=== PATIENT | female | born 1965 | race Caucasian/White ===

== ENCOUNTER 2019-08-30 00:27 | Outpatient (CLI) | payer OTHER, SELFPAY ==
[2019-08-30 18:07] LABS: SARS-CoV-2 RNA PCR Negative
== END 2019-08-30 00:28 | disposition home or self-care (01) ==
LOC: ANHCOVIDDT 00:27
PROVIDERS: PCP Family Medicine; Visit Provider Internal Medicine Gastroenterology
DX: Z01.812 Encounter for preprocedural laboratory examination (principal); Z20.828 Contact with and (suspected) exposure to other viral communicable diseases
CPT/HCPCS: 87635; C9803; U0003

== ENCOUNTER 2019-09-01 00:05 | Day surgery (SDC) | payer OTHER, SELFPAY ==
[2019-08-25 13:10] VITALS: BMI 34.2
[2019-09-01] MEDS: LACTATED RINGERS 1,000 ML 150 ML IV CONT (06:50)
--- NOTE | 2019-09-01 06:54 | P.HP_ITS ---
History of Present Illness History of Present Illness Consent: Risks, benefits, and alternatives have been discussed and questions answered. Patient agrees to proceed with procedure. Chief complaint: Neoplasm Screening, Family Hx Narrative: Rachel Fatima is a 54 year old W female referred for screening colonoscopy secondary history of a serrated adenoma removed via piecemeal fashion 3 years ago from the ascending colon. Patient has no interval complaints except for some menorrhagia which she is being evaluated by [employer]. A paternal uncle with colon cancer. [facility] Past Medical History Medical History Anxiety Essential (primary) hypertension Mixed hyperlipidemia BENNIE (obstructive sleep apnea) Recurrent major depressive disorder, in partial remission Varicose veins of both lower extremities Vitamin D deficiency Surgical History Surgical History (Updated 09/01/19 @ 06:56 by Seferino Ashby MD) History of arthroscopy of both knees Family History Family History Father Family history of coronary artery disease Social History Social History Smoking status: Never smoker Second hand tobacco smoke exposure: No Alcohol intake: current Meds Home Medications and Allergies Home Medications Medication Instructions Recorded Confirmed Type citalopram 40 mg tablet 40 mg PO DAILY #90 tablet 06/07/19 08/25/19 Rx fenofibrate 160 mg tablet 160 mg PO DAILY #90 tablet 06/07/19 08/25/19 Rx losartan 50 mg tablet 50 mg PO DAILY #90 tablet 06/07/19 08/25/19 Rx potassium chloride 10 mEq 10 meq PO DAILY #90 tablet 06/07/19 08/25/19 Rx tablet,extended release meloxicam 15 mg tablet 15 mg PO DAILY #30 tablet 08/04/19 08/25/19 Rx amlodipine 5 mg tablet See Rx Instructions .ROUTE 08/18/19 08/25/19 Rx .COMPLEX #30 tablet aspirin [Aspirin Low Dose] 81 mg PO DAILY 08/25/19 08/25/19 History esomeprazole magnesium [Nexium] 20 mg PO DAILY 08/25/19 08/25/19 History hydrochlorothiazide 12.5 mg PO DAILY 08/25/19 08/25/19 History loratadine [Claritin] 10 mg PO DAILY 08/25/19 08/25/19 History multivitamin [Daily Multi-Vitamin] 1 tablet PO DAILY 08/25/19 08/25/19 History Allergies Allergy/AdvReac Type Severity Reaction Status Date / Time tomato Allergy Intermediate ECZEMA Verified 09/01/19 06:56 WORSENS strawberry AdvReac Intermediate ECZEMA Verified 09/01/19 06:56 WORSENS lisinopril AdvReac Cough Verified 09/01/19 06:56 Exam Const: Orientation/consciousness: patient oriented x3 Resp: Auscultation: clear to auscultation bilaterally Cardio: Rate: regular rate Rhythm: regular rhythm Heart sounds: no murmurs GI: GI Palp: Yes Soft to palpation, No Tenderness to palpation present (GI), Yes No hepatosplenomegaly present and No Palpable mass present Auscultation: normal bowel sounds Neuro: General: patient oriented x3 and no focal motor deficits Extrem: General: no pedal edema Assessment and Plan Additional Plan screening colonoscopy secondary history of a serrated adenoma removed piecemeal fashion 3 years ago
[2019-09-01 07:05] VITALS: BP 142/73; PULSE 70; RESP 18; TEMP 36.6; O2SAT 96
--- NOTE | 2019-09-01 07:09 | WPDANESEPPF ---
Anes - Initial Pre Proc Eval Procedure: Operation Date: 09/01/19 08:00 Proposed Procedures p Screening Colonoscopy - Seferino Ashby MD Date/Time: 09/01/19 07:09 Surgeon: Seferino Ashby MD Pre Op Diagnosis: Neoplasm Screening, Family Hx Patient Data Age: 54 Gender: F Height: 1.73 m Weight: 102.2 kg Last Vital Signs Temp 36.6 C 09/01/19 07:05 Pulse 70 09/01/19 07:05 Resp 18 09/01/19 07:05 BP 142/73 H 09/01/19 07:05 Pulse Ox 96 09/01/19 07:05 Allergies Allergy/AdvReac Type Severity Reaction Status Date / Time tomato Allergy Intermediate ECZEMA Verified 09/01/19 06:56 WORSENS strawberry AdvReac Intermediate ECZEMA Verified 09/01/19 06:56 WORSENS lisinopril AdvReac Cough Verified 09/01/19 06:56 Home Medications Medication Instructions Recorded Confirmed Type citalopram 40 mg tablet 40 mg PO DAILY #90 tablet 06/07/19 08/25/19 Rx fenofibrate 160 mg tablet 160 mg PO DAILY #90 tablet 06/07/19 08/25/19 Rx losartan 50 mg tablet 50 mg PO DAILY #90 tablet 06/07/19 08/25/19 Rx potassium chloride 10 mEq 10 meq PO DAILY #90 tablet 06/07/19 08/25/19 Rx tablet,extended release meloxicam 15 mg tablet 15 mg PO DAILY #30 tablet 08/04/19 08/25/19 Rx amlodipine 5 mg tablet See Rx Instructions .ROUTE 08/18/19 08/25/19 Rx .COMPLEX #30 tablet aspirin [Aspirin Low Dose] 81 mg PO DAILY 08/25/19 08/25/19 History esomeprazole magnesium [Nexium] 20 mg PO DAILY 08/25/19 08/25/19 History hydrochlorothiazide 12.5 mg PO DAILY 08/25/19 08/25/19 History loratadine [Claritin] 10 mg PO DAILY 08/25/19 08/25/19 History multivitamin [Daily Multi-Vitamin] 1 tablet PO DAILY 08/25/19 08/25/19 History Patient hx anesthesia problems: none Family hx anesthesia problems: none PMFSH Past Medical History Medical History Anxiety Essential (primary) hypertension Mixed hyperlipidemia BENNIE (obstructive sleep apnea) Recurrent major depressive disorder, in partial remission Varicose veins of both lower extremities Vitamin D deficiency Surgical History Surgical History (Updated 09/01/19 @ 06:56 by Seferino Ashby MD) History of arthroscopy of both knees Family History Family History Father Family history of coronary artery disease Social History Social History Smoking status: Never smoker Second hand tobacco smoke exposure: No Alcohol intake: current Anes - Eval Final PreProcedure Day of Procedure 09/01/19 07:09 Patient weight: obese Heart: regular rate and rhythm Lungs: clear to auscultation and normal air movement Airway: Mallampati scale class II Neurological: alert and oriented Last oral intake: >/= 8 hours ASA classification: III Emergent: no Anesthetic plan: proceed Anesthesia type and monitoring: general GIVS and standard monitoring Informed Consent: The patient's anesthetic plan and its attendant risks and benefits were discussed with the patient/family/POA. Questions were solicited and answers provided to the satisfaction of the patient/family/POA.
[2019-09-01 08:26] VITALS: BP 94/68; PULSE 68; RESP 18; O2SAT 99
[2019-09-01 08:36] VITALS: BP 110/74; PULSE 63; RESP 17; O2SAT 97
[2019-09-01 08:46] VITALS: BP 117/77; PULSE 64; RESP 13; O2SAT 97
== END 2019-09-01 09:08 | disposition home or self-care (01) ==
PROVIDERS: PCP Family Medicine; Visit Provider Internal Medicine Gastroenterology
PROC: 0DJD8ZZ Inspection of Lower Intestinal Tract, Via Natural or Artificial Opening Endoscopic (ICD-10-PCS; CPT 45378; principal; 2019-09-01 08:00)
DX: Z12.11 Encounter for screening for malignant neoplasm of colon (principal); K57.30 Diverticulosis of large intestine without perforation or abscess without bleeding; Z86.010 Personal history of colon polyps; Z80.0 Family history of malignant neoplasm of digestive organs; I10 Essential (primary) hypertension; E78.2 Mixed hyperlipidemia; E55.9 Vitamin D deficiency, unspecified; G47.33 Obstructive sleep apnea (adult) (pediatric); F41.9 Anxiety disorder, unspecified; F33.41 Major depressive disorder, recurrent, in partial remission; Z79.82 Long term (current) use of aspirin; E66.9 Obesity, unspecified; Z68.35 Body mass index [BMI] 35.0-35.9, adult
CPT/HCPCS: 45378; 87635; C9803; J2704; J7120; U0003

== ENCOUNTER 2019-09-22 00:37 | Outpatient (CLI) | payer OTHER, SELFPAY ==
[2019-09-22 17:53] LABS: SARS-CoV-2 RNA PCR Negative
== END 2019-09-22 00:38 | disposition home or self-care (01) ==
LOC: ANHCOVIDDT 00:38
PROVIDERS: PCP Family Medicine; Visit Provider Obstetrics & Gynecology
DX: Z20.828 Contact with and (suspected) exposure to other viral communicable diseases (principal); Z01.812 Encounter for preprocedural laboratory examination
CPT/HCPCS: 87635; C9803; U0003

== ENCOUNTER 2019-09-22 08:46 | Outpatient (CLI) | payer OTHER, SELFPAY ==
--- NOTE | 2019-09-22 08:50 | ECG_ITS ---
Measurements Intervals [place] Rate: 60 P: 56 MN: 195 QRS: 35 QRSD: 100 T: 33 QT: 457 QTc: 457 Interpretive Statements SINUS RHYTHM DELAYED PRECORDIAL R/S TRANSITION BORDERLINE ECG Electronically Signed On 09-22-2019 10:47:21 CDT by Raphael Brewster D.O.
[2019-09-22 09:47] LABS: Hematocrit 39.4 % (37.0-47.0); Hemoglobin 12.6 g/dL (12.0-15.0)
[2019-09-22 09:58] LABS: Blood Urea Nitrogen 14 mg/dL (7-17); Calcium 8.9 mg/dL (8.4-10.2); Carbon Dioxide 29 mmol/L (22-30); Chloride 103 mmol/L (98-107); Estimated Glomerular Filt Rate > 60; Glucose 95 mg/dL (65-105); Potassium 3.8 mmol/L (3.4-5.0); Sodium 135 mmol/L (137-145)
== END 2019-09-22 08:47 | disposition home or self-care (01) ==
LOC: ANHSURGERY 08:50
PROVIDERS: Anesthesiology; PCP Family Medicine; Visit Provider Obstetrics & Gynecology
DX: D64.9 Anemia, unspecified (principal); I10 Essential (primary) hypertension; Z79.899 Other long term (current) drug therapy; R94.31 Abnormal electrocardiogram [ECG] [EKG]
CPT/HCPCS: 36415; 80048; 85014; 85018; 87635; 93005; C9803; U0003

== ENCOUNTER 2019-09-25 01:59 | Day surgery (SDC) | payer OTHER, SELFPAY ==
[2019-09-12 13:48] VITALS: BMI 34.2
--- NOTE | 2019-09-21 18:01 | HP_ITS ---
DATE OF SERVICE: 09/25/2019 Surgery is scheduled for September 24. HISTORY OF PRESENT ILLNESS: The patient is a 54-year-old G3, P3, who came to me for consultation due to heavy periods. Her periods have been every 1 to 3 months, lasting 4-5 days for the past years, spql-lyp-y-half ago, but she had a heavy 14-day period at the beginning of July and started bleeding again about 10 days later. She saw Dr. Lazcano on August 03. She started her on progesterone for 10 days. The bleeding lightened, but is still occurring, some days are very heavy and she wears double protection. She feels tired and winded, but no chest pain or dizziness. Her hemoglobin dropped from 12.7 to 9 per her report. MEDICAL HISTORY: Hypertension, high cholesterol, depression, and anxiety. MEDICATIONS: 1. Amlodipine. 2. Citalopram. 3. Claritin. 4. Cozaar. 5. Fenofibrate. 6. Hydrochlorothiazide. 7. Progesterone. 8. Meloxicam. 9. Mobic. OB HISTORY: Three vaginal deliveries. SURGICAL HISTORY: Meniscus tear of her knee and right knee arthroscopy, D and C and tonsillectomy and adenoidectomy. SOCIAL HISTORY: Negative for tobacco or drug use. She occasionally drinks alcohol. WOOL DYER HISTORY: Negative for abnormal PAP or STD. REVIEW OF SYSTEMS: Negative. PHYSICAL EXAMINATION: VITAL SIGNS: Her weight is 238, blood pressure 135/83. GENERAL: No apparent distress. HEART: Regular rate and rhythm. LUNGS: Clear to auscultation. ABDOMEN: Soft, nontender, nondistended. EXTREMITIES: Nontender with trace edema. PELVIC: Shows slightly enlarged uterus, mobile, smooth. Adnexa full on the left side and both sides nontender. IMAGING: Pelvic ultrasound shows uterus measuring 10.6 cm maximum of 2.1 cm fibroid, 14 x 9 mm endometrial polyp, 5.4 cm left ovarian cyst, 2.4 cm right ovarian cyst. ASSESSMENT AND PLAN: Menometrorrhagia with bilateral ovarian cyst, endometrial polyp and fibroid. She opted and signed consent for D and C, hysteroscopy, endometrial polypectomy, endometrial ablation, laparoscopic bilateral ovarian cystectomies and possible left oophorectomy after the risks, benefits, complications, and alternatives were discussed. D I MT: [place]
[2019-09-25] VITALS (9 sets, daily range): BP systolic 95–132; BP diastolic 68–82; PULSE 62–76; RESP 10–20; TEMP 36.3–36.7; O2SAT 97–100
--- NOTE | 2019-09-25 10:12 | WPDANESEPPF ---
Anes - Initial Pre Proc Eval Procedure: Operation Date: 09/25/19 12:00 Proposed Procedures p Laparoscopic Bilateral Ovarian Cystectomy, Hysteroscopy, Cyndy Endometrial Ablation, Possible Laparoscopic Bilateral Oophorectomy - Stacey Huynh MD Date/Time: 09/25/19 10:12 Surgeon: Stacey Huynh MD Pre Op Diagnosis: Kaveh Ovarian Cyst/ Uterin Polyp/ Menometrorrhagia Patient Data Age: 54 Gender: F Height: 1.73 m Weight: 102.2 kg Allergies Allergy/AdvReac Type Severity Reaction Status Date / Time tomato Allergy Intermediate ECZEMA Verified 09/25/19 10:40 WORSENS strawberry AdvReac Intermediate ECZEMA Verified 09/25/19 10:40 WORSENS lisinopril AdvReac Cough Verified 09/25/19 10:40 Home Medications Medication Instructions Recorded Confirmed Type citalopram 40 mg tablet 40 mg PO DAILY #90 tablet 06/07/19 09/12/19 Rx fenofibrate 160 mg tablet 160 mg PO DAILY #90 tablet 06/07/19 09/12/19 Rx losartan 50 mg tablet 50 mg PO DAILY #90 tablet 06/07/19 09/12/19 Rx aspirin [Aspirin Low Dose] 81 mg PO DAILY 08/25/19 09/12/19 History esomeprazole magnesium [Nexium] 20 mg PO DAILY 08/25/19 09/12/19 History hydrochlorothiazide 12.5 mg PO DAILY 08/25/19 09/12/19 History loratadine [Claritin] 10 mg PO DAILY 08/25/19 09/12/19 History multivitamin [Daily Multi-Vitamin] 1 tablet PO DAILY 08/25/19 09/12/19 History ferrous sulfate 325 mg PO BID 09/12/19 09/12/19 History meloxicam 15 mg PO DAILY PRN 09/12/19 09/12/19 History potassium chloride 10 meq PO 4XW 09/12/19 09/12/19 History amlodipine [Norvasc] See Rx Instructions .ROUTE .COMPLEX 09/25/19 09/25/19 History ECG: Date of Service: 09/22/19 Procedure(s): CA 12 lead EKG Accession Number(s): [id number] cc: ~ Measurements Intervals [place] Rate: 60 P: 56 FL: 195 QRS: 35 QRSD: 100 T: 33 QT: 457 QTc: 457 Interpretive Statements SINUS RHYTHM DELAYED PRECORDIAL R/S TRANSITION BORDERLINE ECG Electronically Signed On 09-22-2019 10:47:21 CDT by Raphael Brewster D.O. Dictated By: Raphael Brewster DO 09/22/19 0935 Patient hx anesthesia problems: none Family hx anesthesia problems: none PMFSH Past Medical History Medical History (Updated 09/25/19 @ 10:13 by Akil Moreland MD) Anxiety Arthritis Essential (primary) hypertension Mixed hyperlipidemia Obesity BENNIE (obstructive sleep apnea) Recurrent major depressive disorder, in partial remission Varicose veins of both lower extremities Vitamin D deficiency Surgical History Surgical History (Updated 09/01/19 @ 06:56 by Seferino Ashby MD) History of arthroscopy of both knees Social History Social History Smoking status: Never smoker Second hand tobacco smoke exposure: No Alcohol intake: current Anes - Eval Final PreProcedure Day of Procedure 09/25/19 10:12 Patient weight: obese Heart: regular rate and rhythm Lungs: clear to auscultation and normal air movement Airway: Mallampati scale class II Neurological: alert and oriented Last oral intake: >/= 8 hours ASA classification: III Emergent: no Anesthetic plan: proceed Anesthesia type and monitoring: general ETT Informed Consent: The patient's anesthetic plan and its attendant risks and benefits were discussed with the patient/family/POA. Questions were solicited and answers provided to the satisfaction of the patient/family/POA.
[2019-09-25] MEDS: LACTATED RINGERS 1,000 ML 30 ML IV CONT ×2 (11:00→13:52)
--- NOTE | 2019-09-25 12:03 | WPDHPUPDATE1 ---
History and Physical Update Update Date/Time: 09/25/19 12:03 History and Physical has been reviewed, including an updated exam of the patient. There are NO changes in the patient's condition. Risks, benefits, and alternatives have been discussed and questions answered. Patient agrees to proceed with procedure.
--- NOTE | 2019-09-25 12:18 | PM.OP ---
Procedure Note - Brief Procedure Note - Brief Date of procedure: 09/25/19 Pre-op diagnosis: Kaveh Ovarian Cyst/ Uterin Polyp/ Menometrorrhagia Post-op diagnosis: other (Right ovarian cyst, endometrial polyps, menometrorrhagia) Procedure performed: D&C, hysteroscopy, endometrial polypectomy, Cyndy ablation, laparoscopic right ovarian cystectomy Anest[facility]: [facility] Surgeon: Stacey Huynh MD Estimated blood loss (mL): 20 Drains: No Pathology: yes Complications: No immediate complications Condition: stable Disposition: PACU Findings: Large right serous fluid filled ovarian cyst, otherwise normal intraabdominal contents; several small polypoid lesions inside endometrial canal, otherwise normal intrauterine cavity
[2019-09-25] MEDS: BUPIVACAINE/EPINEPHRINE 0.5% 30 ML VIAL 10 ML INFILTRATE (13:58)
[2019-09-25] MEDS: KETOROLAC 30 MG/ML VIAL (*BKC) IV PUSH (13:58)
[2019-09-25] MEDS: PROPARACAINE HCL 0.5% 15 ML OPHTH SOLN 1 DROP EACH EYE (15:03)
--- NOTE | 2019-09-25 15:34 | OP_ITS ---
DATE OF PROCEDURE: 09/25/2019 PREOPERATIVE DIAGNOSIS: Menometrorrhagia, bilateral ovarian cysts, endometrial polyp. POSTOPERATIVE DIAGNOSES: Menometrorrhagia, right ovarian cyst, endometrial polyps. PROCEDURE PERFORMED: Laparoscopic right ovarian cystectomy, D and C, hysteroscopy, endometrial polypectomies using MyoSure, Cyndy endometrial ablation. ANESTHESIA: General endotracheal tube. ESTIMATED BLOOD LOSS: 20 mL. COMPLICATIONS: None. FINDINGS: Large serous fluid-filled right ovarian cyst. Otherwise normal uterus, left ovary, fallopian tubes, appendix, small possible diverticulum on the colon with one adhesion of an epiploic appendage to the left anterior abdominal wall. Normal endometrial cavity other than several small polypoid lesions. INDICATIONS: A 54-year-old, G3, P3, who came to me for consultation due to heavy periods. She was started on progesterone by her primary care physician and the bleeding did lighten, but is still occurring and her hemoglobin did drop from 12.7 to 9. On ultrasound, she was found to have a polypoid lesion, so she was recommended to proceed with surgical therapy and she did sign consent after the risks, benefits, complications, and alternatives were discussed for D and C, hysteroscopy, endometrial polypectomy, endometrial ablation, laparoscopic bilateral ovarian cystectomies with possible left oophorectomy. DESCRIPTION OF PROCEDURE: For the procedure, she was taken to the operating room where general anesthesia was obtained. She was prepared and draped in the normal sterile fashion in the dorsal lithotomy position. Marcaine was injected infraumbilically and a 5 mm skin incision was made in the infraumbilical fold with a scalpel. A 5 mm non-bladed trocar was then placed with the camera in the trocar under direct visualization into the peritoneal cavity. Insufflation was begun and she was placed in Trendelenburg. A 5 mm trocar was placed in the right lower quadrant under direct visualization. Inspection of the pelvis revealed the findings as noted above. A third 5 mm trocar was then placed in the left lower quadrant under direct visualization. A defect was made with a Harmonic Scalpel over the right ovarian cyst with serous fluid noted. The ovarian cyst wall was excised and teased out and there was a small bleeding point at the base of the ovarian cyst, which was easily controlled using the Harmonic Scalpel. The pelvis was suctioned and irrigated. All operative sites were found to be hemostatic. There was one adhesion between the left colonic epiploic appendage to the left anterior abdominal wall, which was easily taken down using the Harmonic Scalpel. The pneumoperitoneum was then allowed to escape. All 3 trocars were removed. All 3 skin incisions were closed using 4-0 Monocryl in subcuticular fashion. Attention was then turned to the vagina and a speculum was placed in the vagina. The anterior lip of the cervix was grasped with a single-tooth tenaculum. The uterus sounded to 9 cm. The cervix was dilated to allow passage of the hysteroscope, which did reveal several small polypoid lesions, so the scope was switched out for the MyoSure scope and device. The MyoSure device was used to remove the polypoid lesions. The Cyndy device was then introduced after the #8 Hegar dilator was used to measure the endocervical canal at 4 cm, yielding a total cavity length of 5 cm. The Cyndy device was introduced and deployed. The cavity assessment passed on the first attempt and the ablation ran for 2 minutes. The Cyndy device was removed. Another look was taken with a hysteroscope, which revealed an excellent appearing ablation. The tenaculum was then removed. The left tenaculum site was bleeding slightly. Pressure was held with ring forceps until
== END 2019-09-25 16:00 | disposition home or self-care (01) ==
PROVIDERS: PCP Family Medicine; Visit Provider Obstetrics & Gynecology
PROC: 0UDB8ZZ Extraction of Endometrium, Via Natural or Artificial Opening Endoscopic (ICD-10-PCS; CPT 58558; principal; 2019-09-25 12:00)
DX: N92.1 Excessive and frequent menstruation with irregular cycle (principal); N83.01 Follicular cyst of right ovary; N84.0 Polyp of corpus uteri; K66.0 Peritoneal adhesions (postprocedural) (postinfection); I10 Essential (primary) hypertension; E78.2 Mixed hyperlipidemia; E66.9 Obesity, unspecified; Z68.34 Body mass index [BMI] 34.0-34.9, adult; F32.4 Major depressive disorder, single episode, in partial remission
CPT/HCPCS: 58662; 58353; 36415; 80048; 85014; 85018; 87635; 88305; 93005; A9270; C9803; J0330; J1100; J1885; J2250; J2405; J2704; J2710; J7030; J7120; U0003

== ENCOUNTER → 2020-01-29 08:21 | Outpatient (CLI) | payer OTHER, SELFPAY ==
--- NOTE | ~2020-01-29 | MMUS_ITS ---
EXAMINATION: MM diagnostic lele BI w estella, US breast RT limited HISTORY: Skin and subcutaneous abnormality in the upper quadrant of the right breast adjacent to the nipple TECHNIQUE: Craniocaudal, mediolateral, and mediolateral oblique 3-D tomosynthesis images of the breas ts were performed and synthetic 2-D images were generated. CAD analysis was submitted and interpreted . High resolution limited right breast ultrasound was performed. COMPARISON: 06/17/2017, 05/29/2017, 05/27/2016, 05/25/2015 BREAST PARENCHYMAL COMPOSITION: The breasts are heterogeneously dense, which may obscure small masses . FINDINGS: MAMMOGRAPHIC FINDINGS: There is no evidence of suspicious mass, calcification, or architectural distortion in either breast to suggest malignancy. There has been no suspicious interval change. No mammographic correlate is id entified for the reported right breast abnormality. ULTRASOUND: There is no evidence of focal abnormal solid or cystic lesion in the vicinity of the reported right b reast abnormality. IMPRESSION: 1. No specific mammographic or sonographic correlate is identified for the reported right breast abno rmality. Further evaluation at this time should be based on clinical assessment. Continued follow-up physical examination is recommended. 2. Recommend routine screening mammography in one year. BI-RADS Category 1: Negative Reviewed, dictated and finalized at location A. IMPRESSION: 1. No specific mammographic or sonographic correlate is identified for the repo rted right breast abnormality. Further evaluation at this time should be based on clinical assessment. Continued follow-up physical examination is recommended . 2. Recommend routine screening mammography in one year. BI-RADS Category 1: Negative
== END ==
PROVIDERS: PCP Family Medicine; Visit Provider Obstetrics & Gynecology
DX: N63.15 Unspecified lump in the right breast, overlapping quadrants (principal)
CPT/HCPCS: 76642; 77062; 77066; G0279

== ENCOUNTER → 2022-12-16 15:52 | Outpatient (CLI) | payer OTHER, SELFPAY ==
--- NOTE | ~2022-12-16 | MM_ITS ---
EXAMINATION: MM screening lele BI w estella HISTORY: Screening mammogram TECHNIQUE: Craniocaudal and mediolateral oblique 3-D tomosynthesis images were obtained and synthetic 2-D images were generated. CAD analysis was submitted and interpreted. COMPARISON: 01/29/2020 diagnostic bilateral mammogram and limited right breast ultrasound, reported n egative 06/17/2017 diagnostic right mammogram and right breast ultrasound 05/25/2017 bilateral screening mammogram BREAST PARENCHYMAL COMPOSITION: There are scattered areas of fibroglandular density. FINDINGS: There is no evidence of suspicious mass, calcification, or architectural distortion to sugg est malignancy in either breast. There has been no suspicious interval change. IMPRESSION: 1. No mammographic evidence of malignancy. 2. Recommend routine screening mammography in one year. BI-RADS Category 1: Negative Reviewed, dictated and finalized at location A.
== END ==
PROVIDERS: PCP Family Medicine; Visit Provider Family Medicine
DX: Z12.31 Encounter for screening mammogram for malignant neoplasm of breast (principal)
CPT/HCPCS: 77063; 77067

== ENCOUNTER 2023-12-24 10:47 | Outpatient (CLI) | payer OTHER, SELFPAY ==
--- NOTE | ~2023-12-24 | MM_ITS ---
EXAMINATION: MM screening [facility] BI w estella HISTORY: Screening mammogram TECHNIQUE: Craniocaudal and mediolateral oblique 3-D tomosynthesis images were obtained and synthetic 2-D images were generated. CAD analysis was submitted and interpreted. COMPARISON: 12/16/2022, 01/29/2020, 05/29/2017 BREAST PARENCHYMAL COMPOSITION:Not Dense. There are scattered areas of fibroglandular density. FINDINGS: No suspicious mass, calcification, or architectural distortion are identified in either sujit ast to suggest malignancy. There has been no suspicious interval change. IMPRESSION: No mammographic evidence of malignancy. Recommend routine screening mammography in one year. BI-RADS Category 1: Negative Reviewed, dictated and finalized at location .
== END 2023-12-24 10:48 | disposition home or self-care (01) ==
PROVIDERS: PCP Family Medicine; Visit Provider Family Medicine
DX: Z12.31 Encounter for screening mammogram for malignant neoplasm of breast (principal)
CPT/HCPCS: 77063; 77067

== ENCOUNTER 2024-02-23 09:44 | Outpatient (CLI) | payer OTHER, SELFPAY ==
--- NOTE | 2024-02-23 11:15 | NEURO_ITS ---
Impression: # Complains of numbness of right hand with nocturnal paresthesia. # Right severe Carpal Tunnel Syndrome. # Left very mild Carpal Tunnel Syndrome. # No ulnar neuropathy. Nerve Conduction Studies Anti Sensory Summary Table Stim Site NR Peak (ms) P-T Amp (?V) Site1 Site2 Delta-P (ms) Dist (cm) Monroe (m/s) Left Median Anti Sensory (2-3nd Digit) Wrist 3.5 27.0 Wrist 2-3nd Digit 3.5 14.0 40 Wrist 3.6 31.3 Wrist 2-3nd Digit 3.5 14.0 40 Right Median Anti Sensory (2-3nd Digit) Wrist 6.0 21.6 Wrist 2-3nd Digit 6.0 14.0 23 Wrist 6.0 12.4 Wrist 2-3nd Digit 6.0 14.0 23 Left Radial Anti Sensory (Base 1st Digit) Wrist 1.8 40.1 Wrist Base 1st Digit 1.8 0.0 Right Radial Anti Sensory (Base 1st Digit) Wrist 2.1 34.1 Wrist Base 1st Digit 2.1 0.0 Left Ulnar Anti Sensory (5th Digit) Wrist 2.5 67.9 Wrist 5th Digit 2.5 14.0 56 Right Ulnar Anti Sensory (5th Digit) Wrist 2.4 45.6 Wrist 5th Digit 2.4 14.0 58 Motor Summary Table Stim Site NR Onset (ms) O-P Amp (mV) Site1 Site2 Delta-0 (ms) Dist (cm) Monroe (m/s) Left Median Motor (Abd Poll Brev) Wrist 3.7 4.8 Elbow Wrist 5.8 31.0 53 Elbow 9.5 3.0 Right Median Motor (Abd Poll Brev) Wrist 6.3 8.3 Elbow Wrist 5.6 29.0 52 Elbow 11.9 6.7 Left Ulnar Motor (Abd Dig Minimi) Wrist 2.3 7.9 A Elbow Wrist 5.3 30.0 57 A Elbow 7.6 6.6 Right Ulnar Motor (Abd Dig Minimi) Wrist 2.7 5.9 A Elbow Wrist 5.6 32.0 57 A Elbow 8.3 3.6 F Wave Studies NR F-Lat (ms) L-R F-Lat (ms) Left Median (Mrkrs) (Abd Poll Brev) 29.22 3.65 Right Median (Mrkrs) (Abd Poll Brev) 32.87 3.65 Left Ulnar (Mrkrs) (Abd Dig Min) 29.20 0.74 Right Ulnar (Mrkrs) (Abd Dig Min) 29.94 0.74 EMG Side Muscle Nerve Root Ins Act Fibs Amp Dur Recrt Comment Right 1stDorInt Ulnar C8-T1 Nml Nml Nml Nml Nml Right Ext Indicis Radial (Post Int) C7-8 Nml Nml Nml Nml Nml Right Ext Digitorum Radial (Post Int) C7-8 Nml Nml Nml Nml Nml Right BrachioRad Radial C5-6 Nml Nml Nml Nml Nml Right PronatorTeres Median C6-7 Nml Nml Nml Nml Nml Right Abd Poll Brev Median C8-T1 Nml Nml Nml Nml Nml Right ABD Dig Min Ulnar C8-T1 Nml Nml Nml Nml Nml Left 1stDorInt Ulnar C8-T1 Nml Nml Nml Nml Nml Left Ext Indicis Radial (Post Int) C7-8 Nml Nml Nml Nml Nml Left Ext Digitorum Radial (Post Int) C7-8 Nml Nml Nml Nml Nml Left BrachioRad Radial C5-6 Nml Nml Nml Nml Nml Left PronatorTeres Median C6-7 Nml Nml Nml Nml Nml Left Abd Poll Brev Median C8-T1 Nml Nml Nml Nml Nml Left ABD Dig Min Ulnar C8-T1 Nml Nml Nml Nml Nml MTDD
== END 2024-02-23 09:45 | disposition home or self-care (01) ==
LOC: ANHNEURO 09:47
PROVIDERS: PCP Family Medicine; Visit Provider Family Medicine
DX: G56.03 Carpal tunnel syndrome, bilateral upper limbs (principal)
CPT/HCPCS: 95886; 95911

== ENCOUNTER 2024-11-20 01:59 | Day surgery (SDC) | payer OTHER, SELFPAY ==
[2024-11-07 09:27] VITALS: BMI 33.5
--- OUTSIDE RECORDS SUMMARY | 2024-11-20 02:01 | XMS_ITS | Clinical Summary ---
Author Organization [facility] Address [address] [place] [address] Care Team Providers Care Admitting Supervisor Name Role Phone Claudio Valdez DO Primary Care Provider + Allergies Active Allergy Reactions Criticality Noted Date Comments Sulfamethoxazole-Trimethoprim Rash Low 2020 Dust Mite Extract Unknown 09/10/2021 Lisinopril Cough 09/05/2020 Medications citalopram 40 MG tablet Take 40 mg by mouth daily. 05/11/19 21 Active loratadine 10 MG tablet Take 10 mg by mouth daily. Active esomeprazole 20 MG capsule Take 20 mg by mouth every morning before breakfast. Active clobetasol 0.05 % ointment APPLY TOPICALLY TO THE AFFECTED AREA TWICE DAILY FOR 2 WEEKS. DO NOT USE ON FACE 02/06/20 21 Active triamcinolone 0.1 % cream APPLY TO THE AFFECTED AREA ON BACK TWICE DAILY 02/06/20 21 Active olopatadine (PATADAY) 0.2 % SolutionIndication s:Allergic conjunctivitis of both eyes Place 1 drop into both eyes daily. 2.5 mL 2 09/11/19 22 Active meloxicam 15 MG tabletIndications: Arthritis Take 1 tablet (15 mg total) by mouth daily as needed. 90 tablet 1 09/19/19 22 Active losartan (COZAAR) 50 MG tabletIndications: Essential hypertension Take 1 tablet (50 mg total) by mouth daily. Please make an appointment with our office for further refills. 90 tablet 07/24/19 23 Active fenofibrate 160 MG tabletIndications: Mixed hyperlipidemia Take 1 tablet (160 mg total) by mouth daily. Please make an appointment with our office for further refills. 90 tablet 07/24/19 23 Active hydroCHLOROthiazid e (MICROZIDE) 12.5 MG tabletIndications: Essential hypertension Take 1 tablet (12.5 mg total) by mouth every morning. Please make an appointment with our office for further refills. 90 tablet 07/24/19 23 Active amLODIPine (NORVASC) 10 MG tabletIndications: Essential hypertension TAKE 1 TABLET BY MOUTH ONCE DAILY. PATIENT MUST BE SEEN FOR FURTHER REFILLS. 30 tablet 09/15/19 23 Active potassium chloride CR (MICRO-K) 10 MEQ CR capsuleIndications :Essential hypertension,Mixed hyperlipidemia TAKE 1 CAPSULE BY MOUTH 4 TIMES A WEEK 16 capsule 10/09/19 23 Active Active Problems Problem Noted Date Diagnosed Date BENNIE on CPAP 09/05/2020 Arthritis 09/05/2020 Depression with anxiety 09/05/2020 Essential hypertension 09/05/2020 Varicose veins of left lower extremity with pain 09/05/2020 Heart murmur 09/05/2020 Mixed hyperlipidemia 09/05/2020 BMI 37.0-37.9, adult 09/05/2020 Immunizations Immunization Administration Dates Next Due Flucelvax 6 Months+ (Prefilled Syringe) 01/12/20 19 Influenza Adult (Generic) 01/11/2019 Tdap (Generic) 05/06/2013 Family History Medical History Relation Comments Hypertension Brother COPD Father Hypertension Father Stroke Father Eczema Mother Hyperlipidemia Mother Hypertension Mother Stroke Mother Asthma Sister Anxiety Son 1 alopecia Son 1 Eczema Son 3 Relation Status Comments Brother Alive Father Mother Alive Sister Alive Son 1 Alive alopecia Son 2 Alive Son 3 Alive Social History Tobacco Use Types Packs/Day Years Used Date Smoking Tobacco: Never Smokeless Tobacco: Never Alcohol Use Standard Drinks/Week Comments Yes 11.7 (1 standard drink = 0.6 oz pure alcohol) social PHQ-2 Answer Date Recorded PHQ-2 Score - If the patient scores above 3, please move on to questions 3-9 0 09/10/2021 Comments No Sex and Gender Information Value Date Recorded Sex Assigned at Not on file Legal Sex 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 Gender Identity Female 03/27/2021 3:50 PM HOSPICE CARE SALES CONSULTANT Sexual Orientation Not on file Occupation Industry Job Start Date Job End Date Not on file Not on file Not on file Not on file Last Filed Vital Signs Vital Sign Reading Time Taken Comments Blood Pressure 124/76 09/10/2021 9:40 AM CDT Pulse 63 09/10/2021 9:40 AM CDT Temperature 36.7 C (98 F) 09/10/2021 9:40 AM CDT Respiratory Rate 16 09/10/2021 9:40 AM CDT Oxygen Saturation 98% 09/10/2021 9:40 AM CDT Inhaled Oxygen Concentration - - Weight 110.8 kg (244 lb 4.8 oz) 09/10/2021 9:40 AM CDT Height 172.7 cm (5' 8) 09/10/2021 9:40 AM CDT Body Mass Index 37.15 09/10/2021 9:40 AM CDT Plan of Treatment Health Maintenance Due Date Last Done Comments Cervical Cancer Screening Pap Smear (Age 30 to 64) Every 3 Years 1966 Annual Physical 1969 Hepatitis C 1984 Hepatitis B Vaccines (1 of 3 - 19+ 3-dose series) 1985 Cervical Cancer Screening Pap with HPV Testing (Age 30 to 64) Every 5 Years 1996 Cervical Cancer Screening with HPV 1996 Pneumococcal Vaccine: 50+ Years (1 of 1 - PCV) 2016 Zoster Vaccines (1 of 2) 2016 DTaP, Tdap and Td Vaccines (2 - Td or Tdap) 05/06/2023 05/06/2013 Mammogram Screening 05/13/2023 05/13/2021, 0 COVID-19 Vaccine ( season) 2023 03/11/2021, 05/22/2020, 05/01/2020 Colorectal Cancer Screening Colonoscopy (10 Years) 08/31/2029 09/01/2019, 09/01/2019, 05/14/2016, Additional history exists Meningococcal B Vaccine Aged Out No l onger eligible based on patient's age to complete this topic Meningococcal Vaccine Aged Out No mikael renuka eligible based on patient's age to complete this topic RSV Immunizations Under 20 Months Aged Out No longer eligible based on patient's age to complete this topic Procedures Procedure Name Priority Date/Time Associated Diagnosis Comments MG SCREENING W LAUREN ROX DIGI Routine 05/13/2021 9:02 AM HOSPICE CARE SALES CONSULTANT Encounter for screening mammogram for malignant neoplasm of breast COLONOSCOPY GENERIC (SCAN ORDER) 09/01/2019 from Last 3 Months or Most Recently Relevant to Health Maintenance Results * MG SCREENING W LAUREN ROX DIGI (05/13/2021 9:02 AM HOSPICE CARE SALES CONSULTANT) Anatomical Region Laterality Modality Breast Bilateral Mammography 05/13/2021 9:43 AM HOSPICE CARE SALES CONSULTANT Impressions 05/13/2021 9:44 AM HOSPICE CARE SALES CONSULTANT =====IMPRESSION:===== No mammographic findings suggestive of malignancy ASSESSMENT: ACR BI-RADS 2 - BENIGN FINDING(S) Recommendation: 1: Routine Screening Bilateral COMMENTS: Ordered By: ASIYA MIGUEL Interpreted By: Yohan Carbajal MD, 05/13/2021 9:43 AM Narrative 05/13/2021 9:44 AM HOSPICE CARE SALES CONSULTANT EXAMINATION: Digital bilateral screening mammogram with 3-D tomosynthesis EXAM DATE/TIME: 05/13/2021 8:36 AM REASON FOR EXAM: SCREENING COMPARISON: January 29, 2020, TECHNIQUE: Digital screening mammography of both breasts was performed in addition to 3-D Tomosynthesis technique. This study was read with the assistance of a computer-aided detection system. TISSUE DENSITY: The breast tissue is heterogeneously dense, which may obscure small masses. FINDINGS: No suspicious masses, malignant appearing calcifications, skin thickening or other abnormalities are present. No significant change from the prior exam. Asiya Miguel CNM MAMMO Final Result * COLONOSCOPY GENERIC (09/01/2019) 09/01/2019 Narrative 09/01/2019 Ordered by an unspecified provider. us Documents Scanned SCANNING Final Result from Last 3 Months or Most Recently Relevant to Health Maintenance Insurance [employer] Care Teams Admitting Supervisor Relationship Specialty Start Date End Date Claudio Valdez DO [facility] [place] [address] PCP - General FAMILY PRACTICE 09/05/20
--- OUTSIDE RECORDS SUMMARY | 2024-11-20 02:01 | XMS_ITS | Clinical Summary ---
Author Organization [facility] Address [address] [place] [address] Care Team Providers Care Third Mate Name Role Phone Unavailable Primary Care Provider Unavailabl e Source Comments [facility] [employer],non-owned Affiliates and Associated Physician Practices is amultiple site organization consisting of ambulatory clinics and hospital sitesin [place] and [place]. This disclosure is being madepursuant to the Care Everywhere program and may not contain all information available regarding this patient. Last updated 17.[facility] [employer] Immunizations Immunization Administration Dates Next Due Covid Pfizer primary monoval ent 12+ yr 0.3mL Purple cap 05/22/2020,05/01/2020 Social History Tobacco Use Types Packs/Day Years Used Date Smoking Tobacco: Never Assessed Comments Unknown Sex and Gender Information Value Date Recorded Sex Assigned at Not on file Legal Sex Female 1:02 PM CDT Gender Identity Not on file Sexual Orientation Not on file Plan of Treatment Health Maintenance Due Date Last Done Comments COLOGUARD (AGES 45-75) - COL ON CA SCREENING 1966 COLON MONITORING 1966 COLONOSCOPY - COLON CA SCREENING 1966 CT COLONOGRAPHY - COLON CA SCREENING 1966 Colorectal Cancer Screening 1966 FIT - COLON CA SCREENING 1966 FLEX SIG - COLON CA SCREENING 1966 LIPID TESTING 1966 MAMMOGRAM 1966 HIV SCREENING 1981 HEPATITIS C SCREENING 04/30/1984 DTAP/TDAP/TD VACCINES (1 - Tdap) 1985 HEPATITIS B VACCINE (1 of 3 - 19+ 3-dose series) 1985 PNEUMOCOCCAL VACCINE 50+ (1 of 1 - PCV) 2016 ZOSTER VACCINE (1 of 2) 2016 COVID-19 VACCINE ( - 2023-2 5 season) 2023 05/22/2020, 05/01/2020 DEPRESSION SCREENING 04/05/2024 INFLUENZA VACCINE (#1) 2024 HIB VACCINE Aged Out No longer eligi ble based on patient's age to complete this topic HPV VACCINE Aged Out No longer eligi ble based on patient's age to complete this topic MENINGOCOCCAL (Group B) VACCINE SHARED DECISION-MAKING Aged Out No longer eligible based on patient's age to complete this topic MENINGOCOCCAL GROUPS A/C/Y/W VACCINE Aged Out No longer eligible b ased on patient's age to complete this topic Insurance [facility] Address: [facility] [id number] [place] [address]
--- OUTSIDE RECORDS SUMMARY | 2024-11-20 02:02 | XMS_ITS | Encounter Summary ---
Author Organization [facility] Address [facility] [place] [address] Care Team Providers Care Pamphlet Distributor Name Role Phone Claudio Valdez Primary Care Provider + Reason for Referral * Surgical (Routine) - Closed Specialty Diagnoses / Procedures Referred By Bill sparrow Referred To Contact Diagnoses Varicose veins of left lower extremity with pain Procedures Case request operating room: GREATER SAPHENOUS VEIN LASER ABLATION Sidney Puentes MD [facility]. [facility] [address] [place] [address] Phone: tel: fax: [facility] [address] Phone: tel: Referral ID Status Reason Start Date Expiration Date Visits Re quested Visits Authorized [id number] Closed 01/14/2021 01/24/2022 1 1 Encounter Details Date Type Department Care Team (Late st Contact Info) Description 12/25/2020 Prep for Procedure [facility] [address] [place], [place] [id number] Sidney Puentes MD [facility]. 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 No / Unsure 12/17/2020 6:56 AM CDT documented as of this encounter Plan of Treatment Scheduled Orders Name Type Priority Associated Diagnoses Orde r Schedule Case request operating room: GREATER SAPHENOUS VEIN LASER ABLATION Case Request Routine Once for 1 O ccurrences starting 12/25/2020 until 12/25/2020 documented as of this encounter Visit Diagnoses Not on filedocumented in this encounter Care Teams Pamphlet Distributor Relationship Specialty Start Date End Date Claudio Valdez DO [address] [place] [id number] PCP - General FAMILY PRACTICE 09/05/20 documented as of this encounter
--- OUTSIDE RECORDS SUMMARY | 2024-11-20 02:02 | XMS_ITS | Patient Health Record ---
Author Organization [facility] Address [address] [place] [address] Care Team Providers Care Salvage Determiner Name Role Phone Maggie Viera MD Primary Care Provider UnavailKeely Rodriguez Unavailable [phone] Nery Chi Unavailable [phone] Piero Jane Unavailable [phone] Sudha Montoya Unavailable [phone] Allergies Allergen (clinical drug ingredient) Drug/Non Drug Allergy documented on EMR Reaction Allergy Type Onset Date Status lisinopril Lisinopril Unknown Drug Allergy 06/18/2023 Acti ve Reason For Referral No Information Medications Medication SIG (Take, Route, Frequency, Duration) Notes Start Date End Date Status Potassium Chloride ER 10 MEQ Oral 06/18/2023 Active Fenofibrate 160 MG Oral 06/18/2023 Active Atomoxetine HCl 40 MG 1 capsule in the morning Orally Once a day; Duration: 30 days Active amLODIPine Besylate 10 MG Oral 06/18/2023 Active hydroCHLOROthiazide 12.5 MG Oral 06/18/2023 Active Sertraline HCl 100 MG 2 tablets Oral Onc e a day; Duration: 30 days Active Acamprosate Calcium 333 MG 2 tablets Ora l three times a day; Duration: 30 days 01/05/2025 Active Losartan Potassium 50 MG Oral 06/18/2023 Active Social History Tobacco Use: Social History Observation Description Date Details (start date - stop date) Never Smoker NA - NA Sex Assigned At : Social History Observation Description Sex Assigned At Female Household Question Answer Notes Marital status: Tobacco Control (Standard) Question Answer Notes Tobacco use: Nonsmoker AUDIT-C (Standard) Question Answer Notes Did you have a drink contain ing alcohol in the past year? Yes How often did you have six o r more drinks on one occasion in the past year? 2 to 4 times a month (2 points) Problems Problem Type SNOMED Code ICD Code Onset Dates Problem Status W/U Status Risk Notes Problem Alcohol abuse (31243794) Alcohol abuse, uncomplicated (F10.10) 06/18/19 24 Active confirmed Problem Mild recurrent major depression (56068908) Major depressive disorder, recurrent, mild (F33.0) Active confirmed Problem Moderate recurrent major depression (94248731) Major depressive disorder, recurrent, moderate (F33.1) 06/18/19 24 Active confirmed Problem Generalized anxiety disorder (41731876) Generalized anxiety disorder (F41.1) Active confirmed Problem Insomnia (024952681) Insomnia, unspecified (G47.00) 06/18/19 24 Active confirmed Problem Obstructive sleep apnea syndrome (disorder) (82225002) Obstructive sleep apnea (adult) (pediatric) (G47.33) 06/18/19 24 Active confirmed Problem Attention deficit hyperactivity disorder (953257461) ADHD (attention deficit hyperactivity disorder), combined type (F90.2) Active confirmed Problem Essential hypertension (86268630) Benign essential HTN (I10) Active confirmed Problem Psychogenic skin symptoms (044567356) Skin picking habit (F42.4) Active confirmed Vital Signs Heart Rate 65 /min 11/06/2024 Height-cm 172.72 cm 11/06/2024 Blood pressure diastolic 90 mm Hg 11/06/2024 Weight-kg 98.07 kg 11/06/2024 Height 68.00 in 11/06/2024 Blood pressure systolic 161 mm Hg 11/06/2024 Weight 216.2 lbs 11/06/2024 BMI 32.87 kg/m2 11/06/2024 Procedures Procedure Date Ordered Date Performed Result Body Sit e ADHD Testing 03/27/2024 N/A ADHD Testing 04/03/2024 N/A Encounters Encounter Location Date Provider Diagnosis [facility] [address] [facility] [address] [place] [address] 01/19/2024 Nery Chi Major depressive disorder, recurrent, moderate F33.1 ; Generalized anxiety disorder F41.1 and Alcohol abuse, uncomplicated F10.10 [facility] [employer] [place] [address] [facility] [address] [place] [address] 02/02/2024 Nery Alon Major depressive disorder, recurrent, moderate F33.1 ; Generalized anxiety disorder F41.1 and Alcohol abuse, uncomplicated F10.10 [facility], [place] [id number] [facility] [address] [place] [address] 02/02/2024 Sudha Lindsay Major depressive disorder, recurrent, moderate F33.1 ; Generalized anxiety disorder F41.1 ; Alcohol abuse, uncomplicated F10.10 ; Insomnia, unspecified G47.00 and Obstructive sleep apnea (adult) (pediatric) G47.33 [place] [id number] [facility] [address] [place] [address] 02/16/2024 Nery Alon Major depressive disorder, recurrent, moderate F33.1 ; Generalized anxiety disorder F41.1 and Alcohol abuse, uncomplicated F10.10 [facility], [place] [address] [facility] [address] [place] [address] 02/28/2024 Nery Alon Major depressive disorder, recurrent, moderate F33.1 ; Generalized anxiety disorder F41.1 and Alcohol abuse, uncomplicated F10.10 [facility], [place] [address] [address] 03/15/2024 Nery Alon Major depressive disorder, recurrent, moderate F33.1 ; Generalized anxiety disorder F41.1 and Alcohol abuse, uncomplicated F10.10 [facility], [place] [address] [address] 03/27/2024 Keely Nathan Generalized anxiety disorder F41.1 ; Major depressive disorder, recurrent, mild F33.0 ; Alcohol abuse, uncomplicated F10.10 ; Obstructive sleep apnea (adult) (pediatric) G47.33 and Attention and concentration deficit R41.840 [facility] [place] [address] [facility] [address] [place] [address] 04/03/2024 Nery Alon Major depressive disorder, recurrent, moderate F33.1 ; Generalized anxiety disorder F41.1 and Insomnia, unspecified G47.00 [facility], [place] [address] [facility] [address] [place] [address] 04/03/2024 Piero Jane Attention and concentration deficit R41.[address] [address] 04/11/2024 Keely Venita Major depressive disorder, recurrent, moderate F33.1 ; ADHD (attention deficit hyperactivity disorder), combined type F90.2 ; Generalized anxiety disorder F41.1 and Alcohol abuse, uncomplicated F10.[address] [address] 05/22/2024 Keely Nathan Major depressive disorder, recurrent, moderate F33.1 ; Generalized anxiety disorder F41.1 ; ADHD (attention deficit hyperactivity disorder), combined type F90.2 ; Alcohol abuse, uncomplicated F10.10 and Benign essential HTN I10 [address] [address] 08/30/2024 Keely Nathan Major depressive disorder, recurrent, mild F33.0 ; ADHD (attention deficit hyperactivity disorder), combined type F90.2 ; Generalized anxiety disorder F41.1 ; Alcohol abuse, uncomplicated F10.10 ; Insomnia, unspecified G47.00 ; Obstructive sleep apnea (adult) (pediatric) G47.33 ; Encounter for screening for depression Z13.31 and Benign essential HTN I10 [address] [address] 09/04/2024 Nery Chi Major depressive disorder, recurrent, mild F33.0 ; Generalized anxiety disorder F41.1 ; ADHD (attention deficit hyperactivity disorder), combined type F90.2 ; Alcohol abuse, uncomplicated F10.10 and Encounter for screening for depression Z13.[address] [address] 11/06/2024 Keely Nathan Generalized anxiety disorder F41.1 ; Major depressive disorder, recurrent, mild F33.0 ; Alcohol abuse, uncomplicated F10.10 ; ADHD (attention deficit hyperactivity disorder), combined type F90.2 and Skin picking habit F42.[address] [address] 12/03/2023 Sudha Montoya Assessments Encounter Date Diagnosis (ICD Code) Assessment Notes Treatment Notes Treatment Clinical Notes Section Notes 08/30/2024 Major depressive disorder, recurrent, mild (ICD-10 - F33.0) 08/30/2024 ADHD (attention deficit hyperactivity disorder), combined type (ICD-10 - F90.2) 11/06/2024 Major depressive disorder, recurrent, mild (ICD-10 - F33.0) 11/06/2024 Generalized anxiety disorder (ICD-10 - F41.1) 09/04/2024 Major depressive disorder, recurrent, mild (ICD-10 - F33.0) 09/04/2024 Generalized anxiety disorder (ICD-10 - F41.1) 04/11/2024 Major depressive disorder, recurrent, moderate (ICD-10 - F33.1) ADHD - Combined Presentation - Test results support diagnosis of combined presentation ADHD (attention and hyperactive components) Plan: - Initiate treatment with atomoxetine (Strattera) 20 mg daily for first week, then increase to 40 mg daily - Monitor for side effects and effectiveness - Provided recommended resources: Scattered Minds and More Attention, Less Deficit books Anxiety and Depression - Not a significant issue currently, mostly related to ADHD symptoms and life stressors Plan: - Continue sertraline 150 mg daily - Continue therapy with Nery - Monitor anxiety and depression levels during follow-up appointments Alcohol Use - Drinking to take the edge off, not to the point of intoxication Plan: - Restart acamprosate 333 mg two tablets three times a day - Encourage patient to monitor alcohol intake - Discuss any concerns with Nery during therapy sessions - Provided recommended resources: Dopamine Nation and Never Enough books focused on addiction. - Schedule follow-up appointment in 6 weeks - Monitor progress, side effects, and treatment effectiveness 03/27/2024 Major depressive disorder, recurrent, mild (ICD-10 - F33.0) no refill needed at this time, Assessment and Plan: Depression and Anxiety - Patient reports stable mood and anixety Alcohol Use Disorder - Patient reports drinking approximately 3 times per week, no change since last visit - Discontinued Campral due to perceived lack of efficacy and difficulty with dosing schedule Attention and Concentration deficits - Patient completed adult self-reporting scale, discussed possibility of ADHD - Further testing and evaluation needed for potential diagnosis Sleep Apnea - Patient using C-Pap machine at night - continue compliance with CPAP Plan: Continue sertraline 150 mg daily Monitor alcohol use and discuss alternative treatments if needed Schedule appointment for detailed ADHD background and history Order ADHD testing and evaluation Continue monitoring weight and appetite Encourage healthy eating habits and regular physical activity Continue using C-Pap as prescribed follow up 1 month, will gather more hx on ADHD concerns, do not see discussed in previous encounters and explore testing and treatment 03/27/2024 Generalized anxiety disorder (ICD-10 - F41.1) Assessment and Plan: Depression and Anxiety - Patient reports stable mood and anixety Alcohol Use Disorder - Patient reports drinking approximately 3 times per week, no change since last visit - Discontinued Campral due to perceived lack of efficacy and difficulty with dosing schedule Attention and Concentration deficits - Patient completed adult self-reporting scale, discussed possibility of ADHD - Further testing and evaluation needed for potential diagnosis Sleep Apnea - Patient using C-Pap machine at night - continue compliance with CPAP Plan: Continue sertraline 150 mg daily Monitor alcohol use and discuss alternative treatments if needed Schedule appointment for detailed ADHD background and history Order ADHD testing and evaluation Continue monitoring weight and appetite Encourage healthy eating habits and regular physical activity Continue using C-Pap as prescribed follow up 1 month, will gather more hx on ADHD concerns, do not see discussed in previous encounters and explore testing and treatment 04/11/2024 ADHD (attention deficit hyperactivity disorder), combined type (ICD-10 - F90.2) ADHD - Combined Presentation - Test results support diagnosis of combined presentation ADHD (attention and hyperactive components) Plan: - Initiate treatment with atomoxetine (Strattera) 20 mg daily for first week, then increase to 40 mg daily - Monitor for side effects and effectiveness - Provided recommended resources: Scattered Minds and More Attention, Less Deficit books Anxiety and Depression - Not a significant issue currently, mostly related to ADHD symptoms and life stressors Plan: - Continue sertraline 150 mg daily - Continue therapy with Nery - Monitor anxiety and depression levels during follow-up appointments Alcohol Use - Drinking to take the edge off, not to the point of intoxication Plan: - Restart acamprosate 333 mg two tablets three times a day - Encourage patient to monitor alcohol intake - Discuss any concerns with Nery during therapy sessions - Provided recommended resources: Dopamine [employer] and Never Enough books focused on addiction. - Schedule follow-up appointment in 6 weeks - Monitor progress, side effects, and treatment effectiveness 04/03/2024 Attention and concentration deficit (ICD-10 - R41.840) 03/15/2024 Major depressive disorder, recurrent, moderate (ICD-10 - F33.1) 02/28/2024 Major depressive disorder, recurrent, moderate (ICD-10 - F33.1) 02/16/2024 Major depressive disorder, recurrent, moderate (ICD-10 - F33.1) 02/02/2024 Major depressive disorder, recurrent, moderate (ICD-10 - F33.1) cont sertraline 150mg daily started therapy some increased sx since unemployed discuss option to increase SSRI, she would rather keep meds as is and address in therapy and life stressors. education meds and treatment course cont AA f/u in 2 months, but call for earlier if concerns -discussed transition to new provider here as I am leaving the practice after this month 02/02/2024 Major depressive disorder, recurrent, moderate (ICD-10 - F33.1) 05/22/2024 Major depressive disorder, recurrent, moderate (ICD-10 - F33.1) ADHD - Combined Presentation - improved on atomoxetine 40 mg daily Plan: - Continue atomoxetine (Strattera) 40 mg daily - Monitor for side effects and effectiveness Anxiety and Depression - Denies current concerns with anxiety and depression Plan: - Continue sertraline 150 mg daily - Continue therapy with Nery - Monitor anxiety and depression levels during follow-up appointments Alcohol Use - Drinking to take the edge off, not to the point of intoxication - Reports inconsistent acamprosate use, but wants to continue Plan: - Continue acamprosate 333 mg two tablets three times a day - Encourage patient to monitor alcohol intake - Discuss any concerns with Nery during therapy sessions Follow-up in 3 months to assess treatment effectiveness and make adjustments - Monitor progress, side effects, and treatment effectiveness 01/19/2024 Major depressive disorder, recurrent, moderate (ICD-10 - F33.1) Client is a 58 y/o, X 1 female with 3 sons (ages 34,28, 26). 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 Client reports she is the 2nd of 3 children and grew up in [place], [place]. She reports childhood was fine. Father had alcohol issues and was verbally abusive to client's mother but not the kids. Client reports mother worked nights. Neither parent was emotionally available. Client's mother August 2023 from old age. Father 27 years ago. Client began seeing JOHN Johnson. Client is currentlly prescribed zoloft. Current PHQ=3. Client reports depression became noticeable about 15 years ago. With current medications she reports mild issues with sleep issues (difficulty falling asleep taking about 15 minutes or longer to fall asleep, getting 8-10 hours of sleep), overeating, and self esteem issues. Client deis SI and HI Current DANY=1. Client reports anxiety became noticeable about 20 years ago. She currently only reports mild issues with irritability. Alcohol abuse. Client reports this started about 10 years ago but became worse about 5 years. At her peak drinking, she was drinking a fifth most days of the week. Currently client drinks 3 days per week and just a couple of drinks. 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 She still has occasional nightmare. She reports avoiding confrontation. She reports feeling detached from others. She reports feeling shame related to the traumas. She reports self esteem issues, difficulty with sleep, she also experiences an exaggerated startle response. 04/03/2024 Major depressive disorder, recurrent, moderate (ICD-10 - F33.1) 04/03/2024 Generalized anxiety disorder (ICD-10 - F41.1) 01/19/2024 Generalized anxiety disorder (ICD-10 - F41.1) Client is a 58 y/o, X 1 female with 3 sons (ages 34,28, 26). 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 Client reports she is the 2nd of 3 children and grew up in [place], [place]. She reports childhood was fine. Father had alcohol issues and was verbally abusive to client's mother but not the kids. Client reports mother worked nights. Neither parent was emotionally available. Client's mother August 2023 from old age. Father 27 years ago. Client began seeing JOHN Johnson. Client is currentlly prescribed zoloft. Current PHQ=3. Client reports depression became noticeable about 15 years ago. With current medications she reports mild issues with sleep issues (difficulty falling asleep taking about 15 minutes or longer to fall asleep, getting 8-10 hours of sleep), overeating, and self esteem issues. Client deis SI and HI Current DANY=1. Client reports anxiety became noticeable about 20 years ago. She currently only reports mild issues with irritability. Alcohol abuse. Client reports this started about 10 years ago but became worse about 5 years. At her peak drinking, she was drinking a fifth most days of the week. Currently client drinks 3 days per week and just a couple of drinks. 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 She still has occasional nightmare. She reports avoiding confrontation. She reports feeling detached from others. She reports feeling shame related to the traumas. She reports self esteem issues, difficulty with sleep, she also experiences an exaggerated startle response. 05/22/2024 Generalized anxiety disorder (ICD-10 - F41.1) ADHD - Combined Presentation - improved on atomoxetine 40 mg daily Plan: - Continue atomoxetine (Strattera) 40 mg daily - Monitor for side effects and effectiveness Anxiety and Depression - Denies current concerns with anxiety and depression Plan: - Continue sertraline 150 mg daily - Continue therapy with Nery - Monitor anxiety and depression levels during follow-up appointments Alcohol Use - Drinking to take the edge off, not to the point of intoxication - Reports inconsistent acamprosate use, but wants to continue Plan: - Continue acamprosate 333 mg two tablets three times a day - Encourage patient to monitor alcohol intake - Discuss any concerns with Nery during therapy sessions Follow-up in 3 months to assess treatment effectiveness and make adjustments - Monitor progress, side effects, and treatment effectiveness 02/02/2024 Generalized anxiety disorder (ICD-10 - F41.1) 02/02/2024 Generalized anxiety disorder (ICD-10 - F41.1) SSRI, therapy as above 02/16/2024 Generalized anxiety disorder (ICD-10 - F41.1) 02/28/2024 Generalized anxiety disorder (ICD-10 - F41.1) 03/15/2024 Generalized anxiety disorder (ICD-10 - F41.1) 03/27/2024 Alcohol abuse, uncomplicated (ICD-10 - F10.10) stopped on own accord in between visits. monitor Assessment and Plan: Depression and Anxiety - Patient reports stable mood and anixety Alcohol Use Disorder - Patient reports drinking approximately 3 times per week, no change since last visit - Discontinued Campral due to perceived lack of efficacy and difficulty with dosing schedule Attention and Concentration deficits - Patient completed adult self-reporting scale, discussed possibility of ADHD - Further testing and evaluation needed for potential diagnosis Sleep Apnea - Patient using C-Pap machine at night - continue compliance with CPAP Plan: Continue sertraline 150 mg daily Monitor alcohol use and discuss alternative treatments if needed Schedule appointment for detailed ADHD background and history Order ADHD testing and evaluation Continue monitoring weight and appetite Encourage healthy eating habits and regular physical activity Continue using C-Pap as prescribed follow up 1 month, will gather more hx on ADHD concerns, do not see discussed in previous encounters and explore testing and treatment 04/11/2024 Generalized anxiety disorder (ICD-10 - F41.1) ADHD - Combined Presentation - Test results support diagnosis of combined presentation ADHD (attention and hyperactive components) Plan: - Initiate treatment with atomoxetine (Strattera) 20 mg daily for first week, then increase to 40 mg daily - Monitor for side effects and effectiveness - Provided recommended resources: Scattered Minds and More Attention, Less Deficit books Anxiety and Depression - Not a significant issue currently, mostly related to ADHD symptoms and life stressors Plan: - Continue sertraline 150 mg daily - Continue therapy with Nery - Monitor anxiety and depression levels during follow-up appointments Alcohol Use - Drinking to take the edge off, not to the point of intoxication Plan: - Restart acamprosate 333 mg two tablets three times a day - Encourage patient to monitor alcohol intake - Discuss any concerns with Nery during therapy sessions - Provided recommended resources: Dopamine [employer] and Never Enough books focused on addiction. - Schedule follow-up appointment in 6 weeks - Monitor progress, side effects, and treatment effectiveness 09/04/2024 ADHD (attention deficit hyperactivity disorder), combined type (ICD-10 - F90.2) 11/06/2024 Alcohol abuse, uncomplicated (ICD-10 - F10.10) 08/30/2024 Generalized anxiety disorder (ICD-10 - F41.1) 08/30/2024 Alcohol abuse, uncomplicated (ICD-10 - F10.10) 11/06/2024 ADHD (attention deficit hyperactivity disorder), combined type (ICD-10 - F90.2) 09/04/2024 Alcohol abuse, uncomplicated (ICD-10 - F10.10) 04/11/2024 Alcohol abuse, uncomplicated (ICD-10 - F10.10) ADHD - Combined Presentation - Test results support diagnosis of combined presentation ADHD (attention and hyperactive components) Plan: - Initiate treatment with atomoxetine (Strattera) 20 mg daily for first week, then increase to 40 mg daily - Monitor for side effects and effectiveness - Provided recommended resources: Scattered Minds and More Attention, Less Deficit books Anxiety and Depression - Not a significant issue currently, mostly related to ADHD symptoms and life stressors Plan: - Continue sertraline 150 mg daily - Continue therapy with Nery - Monitor anxiety and depression levels during follow-up appointments Alcohol Use - Drinking to take the edge off, not to the point of intoxication Plan: - Restart acamprosate 333 mg two tablets three times a day - Encourage patient to monitor alcohol intake - Discuss any concerns with Nery during therapy sessions - Provided recommended resources: Dopamine [employer] and Never Enough books focused on addiction. - Schedule follow-up appointment in 6 weeks - Monitor progress, side effects, and treatment effectiveness 02/28/2024 Alcohol abuse, uncomplicated (ICD-10 - F10.10) 03/27/2024 Obstructive sleep apnea (adult) (pediatric) (ICD-10 - G47.33) Assessment and Plan: Depression and Anxiety - Patient reports stable mood and anixety Alcohol Use Disorder - Patient reports drinking approximately 3 times per week, no change since last visit - Discontinued Campral due to perceived lack of efficacy and difficulty with dosing schedule Attention and Concentration deficits - Patient completed adult self-reporting scale, discussed possibility of ADHD - Further testing and evaluation needed for potential diagnosis Sleep Apnea - Patient using C-Pap machine at night - continue compliance with CPAP Plan: Continue sertraline 150 mg daily Monitor alcohol use and discuss alternative treatments if needed Schedule appointment for detailed ADHD background and history Order ADHD testing and evaluation Continue monitoring weight and appetite Encourage healthy eating habits and regular physical activity Continue using C-Pap as prescribed follow up 1 month, will gather more hx on ADHD concerns, do not see discussed in previous encounters and explore testing and treatment 02/16/2024 Alcohol abuse, uncomplicated (ICD-10 - F10.10) 02/02/2024 Alcohol abuse, uncomplicated (ICD-10 - F10.10) cont campral 666mg TID-being more consistent cont AA, keep working with sponsor started therapy 03/15/2024 Alcohol abuse, uncomplicated (ICD-10 - F10.10) 02/02/2024 Alcohol abuse, uncomplicated (ICD-10 - F10.10) 05/22/2024 ADHD (attention deficit hyperactivity disorder), combined type (ICD-10 - F90.2) ADHD - Combined Presentation - improved on atomoxetine 40 mg daily Plan: - Continue atomoxetine (Strattera) 40 mg daily - Monitor for side effects and effectiveness Anxiety and Depression - Denies current concerns with anxiety and depression Plan: - Continue sertraline 150 mg daily - Continue therapy with Nery - Monitor anxiety and depression levels during follow-up appointments Alcohol Use - Drinking to take the edge off, not to the point of intoxication - Reports inconsistent acamprosate use, but wants to continue Plan: - Continue acamprosate 333 mg two tablets three times a day - Encourage patient to monitor alcohol intake - Discuss any concerns with Nery during therapy sessions Follow-up in 3 months to assess treatment effectiveness and make adjustments - Monitor progress, side effects, and treatment effectiveness 01/19/2024 Alcohol abuse, uncomplicated (ICD-10 - F10.10) Client is a 58 y/o, X 1 female with 3 sons (ages 34,28, 26). 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 Client reports she is the 2nd of 3 children and grew up in [place], [place]. She reports childhood was fine. Father had alcohol issues and was verbally abusive to client's mother but not the kids. Client reports mother worked nights. Neither parent was emotionally available. Client's mother August 2023 from old age. Father 27 years ago. Client began seeing JOHN Johnson. Client is currentlly prescribed zoloft. Current PHQ=3. Client reports depression became noticeable about 15 years ago. With current medications she reports mild issues with sleep issues (difficulty falling asleep taking about 15 minutes or longer to fall asleep, getting 8-10 hours of sleep), overeating, and self esteem issues. Client deis SI and HI Current DANY=1. Client reports anxiety became noticeable about 20 years ago. She currently only reports mild issues with irritability. Alcohol abuse. Client reports this started about 10 years ago but became worse about 5 years. At her peak drinking, she was drinking a fifth most days of the week. Currently client drinks 3 days per week and just a couple of drinks. 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 She still has occasional nightmare. She reports avoiding confrontation. She reports feeling detached from others. She reports feeling shame related to the traumas. She reports self esteem issues, difficulty with sleep, she also experiences an exaggerated startle response. 04/03/2024 Insomnia, unspecified (ICD-10 - G47.00) 05/22/2024 Alcohol abuse, uncomplicated (ICD-10 - F10.10) ADHD - Combined Presentation - improved on atomoxetine 40 mg daily Plan: - Continue atomoxetine (Strattera) 40 mg daily - Monitor for side effects and effectiveness Anxiety and Depression - Denies current concerns with anxiety and depression Plan: - Continue sertraline 150 mg daily - Continue therapy with Nery - Monitor anxiety and depression levels during follow-up appointments Alcohol Use - Drinking to take the edge off, not to the point of intoxication - Reports inconsistent acamprosate use, but wants to continue Plan: - Continue acamprosate 333 mg two tablets three times a day - Encourage patient to monitor alcohol intake - Discuss any concerns with Neyr during therapy sessions Follow-up in 3 months to assess treatment effectiveness and make adjustments - Monitor progress, side effects, and treatment effectiveness 05/22/2024 Benign essential HTN (ICD-10 - I10) ADHD - Combined Presentation - improved on atomoxetine 40 mg daily Plan: - Continue atomoxetine (Strattera) 40 mg daily - Monitor for side effects and effectiveness Anxiety and Depression - Denies current concerns with anxiety and depression Plan: - Continue sertraline 150 mg daily - Continue therapy with Nery - Monitor anxiety and depression levels during follow-up appointments Alcohol Use - Drinking to take the edge off, not to the point of intoxication - Reports inconsistent acamprosate use, but wants to continue Plan: - Continue acamprosate 333 mg two tablets three times a day - Encourage patient to monitor alcohol intake - Discuss any concerns with Nery during therapy sessions Follow-up in 3 months to assess treatment effectiveness and make adjustments - Monitor progress, side effects, and treatment effectiveness 02/02/2024 Insomnia, unspecified (ICD-10 - G47.00) manageable practice good sleep hygiene minimize caffeine 03/27/2024 Attention and concentration deficit (ICD-10 - R41.840) Assessment and Plan: Depression and Anxiety - Patient reports stable mood and anixety Alcohol Use Disorder - Patient reports drinking approximately 3 times per week, no change since last visit - Discontinued Campral due to perceived lack of efficacy and difficulty with dosing schedule Attention and Concentration deficits - Patient completed adult self-reporting scale, discussed possibility of ADHD - Further testing and evaluation needed for potential diagnosis Sleep Apnea - Patient using C-Pap machine at night - continue compliance with CPAP Plan: Continue sertraline 150 mg daily Monitor alcohol use and discuss alternative treatments if needed Schedule appointment for detailed ADHD background and history Order ADHD testing and evaluation Continue monitoring weight and appetite Encourage healthy eating habits and regular physical activity Continue using C-Pap as prescribed follow up 1 month, will gather more hx on ADHD concerns, do not see discussed in previous encounters and explore testing and treatment 09/04/2024 Encounter for screening for depression (ICD-10 - Z13.31) 11/06/2024 Skin picking habit (ICD-10 - F42.4) 08/30/2024 Insomnia, unspecified (ICD-10 - G47.00) 08/30/2024 Obstructive sleep apnea (adult) (pediatric) (ICD-10 - G47.33) 02/02/2024 Obstructive sleep apnea (adult) (pediatric) (ICD-10 - G47.33) uses cpap 08/30/2024 Encounter for screening for depression (ICD-10 - Z13.31) 08/30/2024 Benign essential HTN (ICD-10 - I10) 01/19/2024 Other Client was assessed for therapy services. Client is a 58 y/o, X 1 female with 3 sons (ages 34,28, 26). 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 Client reports she is the 2nd of 3 children and grew up in [place], [place]. She reports childhood was fine. Father had alcohol issues and was verbally abusive to client's mother but not the kids. Client reports mother worked nights. Neither parent was emotionally available. Client's mother August 2023 from old age. Father 27 years ago. Client began seeing JOHN Johnson. Client is currentlly prescribed zoloft. Current PHQ=3. Client reports depression became noticeable about 15 years ago. With current medications she reports mild issues with sleep issues (difficulty falling asleep taking about 15 minutes or longer to fall asleep, getting 8-10 hours of sleep), overeating, and self esteem issues. Client deis SI and HI Current DANY=1. Client reports anxiety became noticeable about 20 years ago. She currently only reports mild issues with irritability. Alcohol abuse. Client reports this started about 10 years ago but became worse about 5 years. At her peak drinking, she was drinking a fifth most days of the week. Currently client drinks 3 days per week and just a couple of drinks. 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 She still has occasional nightmare. She reports avoiding confrontation. She reports feeling detached from others. She reports feeling shame related to the traumas. She reports self esteem issues, difficulty with sleep, she also experiences an exaggerated startle response. 02/02/2024 Other Client reports she is struggling with motivation. Client described her struggle with motivation. Therapist actively listened to client and helped her to explore strategie to improve motivation (using a time, breaking tasks down to smaller pieces.) 02/16/2024 Other Client reports struggling with concentration and focus. She states she struggles with self esteem. Therapist activiley listened to client and utilized a cognitive behavioral intervention to help client gain insight to the benefits of self affirmations and putting reminders up around the home and her environment. 02/28/2024 Other Client complet ed the ADHD self report. Therapist will have it scanned into her chart. Client expressed interest in further. Therapist actively listened to client and utilized a cognitive behavior interfention to help client begin exploring a self care assessment to gain strategies to improve self-esteem. 03/15/2024 Other Client reports she has been practicing mindfulness and it has been helpful for her. Today she wanted to focus more on staying on task, which has been difficult for her. Therapist actively listened to client and utilized a cognitive behavioral intervention to help client explore strategies to be more focused, lists, prioritizing tasks, briaking tasks down into smaller parts, and setting alarms on her phone to move on to the next task. 04/03/2024 Other Client reports her son was deployed to [employer]. She is in the process of selling her mother's home. She states the holiday was good. Client reports they are getting ready to possibly sell their home, depending on the location he will get a job. Client reports she has been utilizing strategies discussed last session (prioritizing tasks). Therapist actively listened to client and provided a supportive intervention by helping client maintain her current level of functioning through the showing of acceptance. 08/30/2024 Other Lesia Torre, adult female patient with history of depression and alcohol use, presenting with frustration due to job loss and concerns about energy levels. Major Depressive Disorder Assessment: Patient reports frustration due to job loss since January and uncertainty about the future. She has been considering increasing her antidepressant dose due to fluctuating mood and energy levels. Patient denies suicidal ideation. Sleep is reported as adequate, but patient experiences daytime fatigue approximately once per week. Current treatment includes sertraline 150 mg daily and atomoxetine 40 mg daily. Patient is engaging in self-care activities such as meditation, audiobooks, walking, biking, and working out. Plan: - Continue sertraline 150 mg PO daily - Continue atomoxetine 40 mg daily - Maintain current medication regimen and reassess in 6 weeks - Encourage continuation of current self-care activities - Consider increasing frequency of therapy sessions if needed during this challenging period - Follow up in 6 weeks Alcohol Use Assessment: Patient reports ongoing alcohol consumption, described as not horrible, not great. Current use is at least 4 days per week, with 12 ounces consumed on drinking days. Patient has been prescribed acamprosate but reports inconsistent use. Plan: - Encourage consistent use of acamprosate as prescribed - Continue to monitor alcohol intake and its impact on overall health and treatment efficacy Elevated Blood Pressure Assessment: Patient's blood pressure was noted to be elevated during the visit. Patient reports that home readings have been normal and plans to recheck. Plan: - Advise patient to monitor blood pressure at home and report any consistently elevated readings 09/04/2024 Other Client reports she was awaken by a panic attack the other night. She states that her still does not have a job and they have had to sell their home. She realizes that through all the set backs, she has not been taking care of herself and has been taking steps to minimize her stress level but feels she needs more. She is seeking additional strategies to minimize her stress and have a more positive outlook. Therapist actively listened to client and utilized a cognitive behavioral intervention to help client recognize the benefit of gratitude practice (adding what she did to make the good thing happen, tracking any further panic attacks, and continue with what she is already doing). PHQ=7 mild DANY=8 mild 11/06/2024 Other Lesia Torre is a female patient presenting with anxiety, depression, and skin picking behaviors, reporting improvement from the previous week but still experiencing significant symptoms. Generalized Anxiety Disorder Assessment: Patient reports experiencing anxiety more than half the days, but not every day. She acknowledges worrying about many things, though able to control it to some extent. Patient has trouble relaxing, feels restless, and has difficulty sitting still. These symptoms are consistent with Generalized Anxiety Disorder. The patient's skin picking behavior appears to be anxiety-driven and subconscious, often occurring during periods of increased anxiety. Plan: - Increase sertraline to 200 mg PO daily - Informed patient that this increase may help with anxiety, depression, and skin picking behaviors - Continue atomoxetine 40 mg daily - Maintaining current dose due to potential blood pressure effects - Encourage continuation of regular exercise for stress management - Follow-up appointment in 4-6 weeks to assess response to medication change Major Depressive Disorder Assessment: Patient reports feeling depressed, with difficulty getting out of bed on several days due to depression rather than fatigue. This symptom, along with the anxiety symptoms, suggests a diagnosis of Major Depressive Disorder. The current treatment regimen includes sertraline and atomoxetine, which are being adjusted to address both depression and anxiety symptoms. Plan: - Increase sertraline to 200 mg PO daily (as noted in anxiety treatment plan) - Continue atomoxetine 40 mg daily (as noted in anxiety treatment plan) - Recommend finding a new therapist, as patient expressed need for change - Follow-up in 4-6 weeks to assess response to medication change and mood symptoms Skin Picking Assessment: Patient reports skin picking behavior, often occurring subconsciously during periods of anxiety. 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 The patient's has noticed this behavior, indicating it is significant enough to be observed by others. Plan: - Increase sertraline to 200 mg PO daily (as noted in anxiety treatment plan) - Informed patient that this increase may help with skin picking behavior - Encourage awareness of skin picking triggers, particularly during anxious periods - Follow-up in 4-6 weeks to assess improvement in skin picking behavior Alcohol Use Assessment: Patient reports drinking alcohol at least 4 days per week, sometimes more. This level of alcohol consumption is concerning and may interact with her psychiatric medications and overall mental health. Plan: - Continue acamprosate - Discuss potential risks of alcohol use with current medication regimen - Recommend reducing alcohol intake and consider referral to substance use counseling if needed - Monitor alcohol use at follow-up appointments Hypertension Assessment: Patient's blood pressure was noted to be elevated during the current visit and a previous recent visit. Patient is currently on losartan, hydrochlorothiazid e, and amlodipine for hypertension management. The addition of atomoxetine for ADHD may be contributing to blood pressure elevation. Plan: - Continue current antihypertensive medications: losartan, hydrochlorothiazid e, amlodipine - Maintain atomoxetine at 40 mg daily to avoid further blood pressure increases - Advise patient to follow up with primary care physician regarding recent high blood pressure readings - Monitor blood pressure at future psychiatric appointments Medical Decision Making Lesia Torre is a female patient with a history of anxiety, depression, ADHD, and hypertension presenting with worsening anxiety, skin picking, and depressive symptoms. The patient's increased anxiety and skin picking behavior, occurring more than half the days, suggest an exacerbation of her anxiety disorder. Her depressive symptoms, including difficulty getting out of bed, indicate a concurrent depressive episode. The clinician considered the interplay between anxiety and skin picking, recognizing it as a potential manifestation within the OCD spectrum. Given the patient's complex presentation and current medication regimen, the decision was made to increase sertraline from 50mg to 200mg, targeting anxiety, depression, and skin picking simultaneously. The choice of sertraline was supported by its FDA approval for both anxiety and OCD. The atomoxetine dose was maintained at 40mg due to its efficacy for ADHD symptoms and potential to exacerbate hypertension if increased. The patient's elevated blood pressure was noted, prompting consideration of medication adjustments and lifestyle modifications. Plan Of Treatment Pending Test Test Name Order Date ADHD Testing 03/27/2024 ADHD Testing 04/03/2024 Next Appt Details Provider Name:Ramakrishna kilgore, 12/18/2024 10:00:00 AM, [address], [facility] [address], [address], Provider Name:Keely summers, 12/18/2024 11:15:00 AM, [address], [facility] [address], [place], [address], Insurance Providers Payer Name Payer Address Payer Phone Subscriber Number Group Number Insured Name Patient Relationship to Insured Coverage Start Date Coverage End Date [employer] [address] [place] [phone] [id number] [place] Spouse - patient is the spouse of the insured Medical (General) History Medical History History ICD Code Problems: Alcohol abuse Generalized anxiety disorder Middle insomnia Moderate recurrent major depression Obstructive sleep apnea syndrome Benign essential hypertension I10 Surgical History Surgery Date(Month/Year) Repair of meniscus ([id number]) Tonsilectomy/adenoids 04/05/1974 Endometrial ablation (67576) 04/05/2019
--- OUTSIDE RECORDS SUMMARY | 2024-11-20 02:02 | XMS_ITS ---
Author Organization [facility] [employer] Address [address] [facility] [address] [place] [address] Care Team Providers Care Editor Book Name Role Phone Maggie Viera MD Primary Care Provider Keely Redmond Unavailable [phone] Allergies Allergen (clinical drug ingredient) Drug/Non Drug Allergy documented on EMR Reaction Allergy Type Onset Date Status lisinopril Lisinopril Unknown Drug Allergy 06/18/2023 Acti ve REASON FOR VISIT 6 week f/u Medications Medication SIG (Take, Route, Frequency, Duration) Notes Start Date End Date Status Potassium Chloride ER 10 MEQ Oral 06/18/2023 Active Fenofibrate 160 MG Oral 06/18/2023 Active Acamprosate Calcium 333 MG 2 tablets Ora l three times a day Active Sertraline HCl 100 MG 1.5 tablet Oral On ce a day; Duration: 90 days Active Atomoxetine HCl 40 MG 1 capsule in the morning Orally Once a day; Duration: 90 days 11/28/2024 Active Folic Acid 1 MG Oral 06/18/2023 Act saúl amLODIPine Besylate 10 MG Oral 06/18/2023 Active hydroCHLOROthiazide 12.5 MG Oral 06/18/2023 Active Losartan Potassium 50 MG Oral 06/18/2023 Active Social History Tobacco Use: Social History Observation Description Date Details (start date - stop date) Never Smoker NA - NA Sex Assigned At : Social History Observation Description Sex Assigned At Female Tobacco Control (Standard) Question Answer Notes Tobacco use: Nonsmoker AUDIT-C (Standard) Question Answer Notes Did you have a drink contain ing alcohol in the past year? Yes How often did you have six o r more drinks on one occasion in the past year? 2 to 4 times a month (2 points) Vital Signs Blood pressure systolic 147 mm Hg 10/31/19 25 Blood pressure diastolic 68 mm Hg 025 Heart Rate 102 /min 10/30/2024 Height 68.00 in 10/30/2024 Weight 216 lbs 10/30/2024 BMI 32.84 kg/m2 10/30/2024 Height-cm 172.72 cm 10/30/2024 Weight-kg 97.98 kg 10/30/2024 Encounters Encounter Location Date Provider Diagnosis [place] [id number] [address] 10/30/2024 Keely Nathan Plan Of Treatment Next Appt Details Provider Name:Ramakrishna kilgore, 12/18/2024 10:00:00 AM, [facility] [address] [facility], [address], [address], Provider Name:Keely summers, 12/18/2024 11:15:00 AM, [facility] [address] [facility], [address], [address], Progress Notes * LEE TORRE MDOB:[birth year] (59 yo F)Acc No.[id number]:10/30/2024 Patient: LEE CORADO Provider: Uyen Nathan :1965 A ge:59 Y S ex:Female Date:10/30/2024 Address:[address] [place], [place] [id number] Pcp:Maggie Viera MD Subjective: * Chief Complaints: * 1 . 6 week f/u. * Medical History: P roblems: Alcohol abuse, Generalized anxiety disorder, Middle insomnia, Moderate recurrent major depression, Obstructive sleep apnea syndrome, Benign essential hypertension. * Social History: T obacco Use: T obacco Control (Standard) T obacco use: N onsmoker D rug/Alcohol: A ARABELLA-C (Standard) D id you have a drink containing alcohol in the past year? Y es H ow often did you have six or more drinks on one occasion in the past year? 2 to 4 times a month (2 points) * Medications: T aking Fenofibrate 160 MG Tablet Oral , Taking Potassium Chloride ER 10 MEQ Capsule Extended Release Oral , Taking Losartan Potassium 50 MG Tablet Oral , Taking hydroCHLOROthiazide 12.5 MG Tablet Oral , Taking amLODIPine Besylate 10 MG Tablet Oral , Taking Folic Acid 1 MG Tablet Oral , Taking Acamprosate Calcium 333 MG Tablet Delayed Release 2 tablets Oral three times a day , Taking Atomoxetine HCl 40 MG Capsule 1 capsule in the morning Orally Once a day , stop date 11/28/2024, Taking Sertraline HCl 100 MG Tablet 1.5 tablet Oral Once a day , Medication List reviewed and reconciled with the patient * Allergies: L isinopril: Allergy - Onset Date 06/18/2023. Objective: * Vitals: B P:147/68mm Hg, HR:102/min, Wt:216lbs, Wt-k.98 kg, Ht: 68.00 in, Ht-cm: 172.72 cm, BMI:32.84Index, Body Surface Area: 2.17. Assessment: Plan: * Treatment: * Procedure Codes: 1 036F TOBACCO NON-USER * Billing Information: * Visit Code: * Procedure Codes: 1036F TOBACCO NON-USER. * Electronic signature of Jamie Nathan on 11/20/2024 at 02:02 AM CDT Sign off status: Pending * Provider: Uyen Nathan Date: 0 10/30/2024 Generated for Avani dill/Vernon/Sánchez on: 11/20/2024 02:02 AM CDT
[2024-11-20 10:23] VITALS: BP 154/77; PULSE 72; RESP 18; TEMP 36.6; O2SAT 100
--- NOTE | 2024-11-20 10:32 | WPDANESEPPF ---
Anes - Initial Pre Proc Eval Procedure: Operation Date: 11/20/24 11:30 Proposed Procedures p Screening Colonoscopy - Juan Anaya MD Date/Time: 11/20/24 10:32 Surgeon: Juan Anaya MD Pre Op Diagnosis: screening Patient Data Age: 59 Gender: F Height: 1.73 m Weight: 98.4 kg Last Vital Signs Temp 36.6 C 11/20/24 10:23 Pulse 72 11/20/24 10:23 Resp 18 11/20/24 10:23 BP 154/77 H 11/20/24 10:23 Pulse Ox 100 11/20/24 10:23 O2 Del Method Room Air 11/20/24 10:23 Allergies Allergy/AdvReac Type Severity Reaction Status Date / Time tomato Allergy Intermediate ECZEMA Verified 11/20/24 10:22 WORSENS strawberry AdvReac Intermediate ECZEMA Verified 11/20/24 10:22 WORSENS lisinopril AdvReac Unknown Cough Verified 11/20/24 10:22 Home Medications ?Medication ?Instructions ?Recorded ?Confirmed ?Type loratadine 10 mg tablet (Claritin) 10 mg PO DAILY 08/25/19 11/20/24 History multivitamin (Daily Multi-Vitamin 1 tablet PO DAILY #90 tabs 10/20/19 11/20/24 Rx tablet) thiamine HCl (vitamin B1) 100 mg 100 mg PO DAILY #90 tabs 08/19/22 11/07/24 Rx tablet Mask fitting #1 ea 10/14/22 07/19/24 Rx losartan 50 mg tablet 50 mg PO DAILY #90 tabs 01/07/24 11/20/24 Rx syringe with needle 1 mL 25 gauge #4 ea 02/21/24 07/19/24 Rx x 5/8 potassium chloride 10 mEq 10 meq PO .4 times a week #90 caps 03/20/24 11/20/24 Rx capsule,extended release atomoxetine 40 mg capsule 40 mg PO DAILY #30 caps 07/19/24 11/20/24 Rx sertraline 100 mg tablet 150 mg (1.5 x 100 mg) PO DAILY 07/19/24 11/20/24 Rx #135 tabs tirzepatide (weight loss) 5 mg/0.5 5 mg (0.5 mL) subcut WEEKLY #2 mL 08/17/24 11/07/24 Rx mL subcutaneous solution (Zepbound) levothyroxine 25 mcg tablet 25 mcg PO DAILY #90 tabs 09/12/24 11/20/24 Rx (Levoxyl) amlodipine 10 mg tablet 10 mg PO DAILY #90 tabs 09/25/24 11/20/24 Rx fenofibrate 160 mg tablet 160 mg PO DAILY #90 tabs 09/25/24 11/20/24 Rx folic acid 1 mg tablet 1 mg PO DAILY #90 tabs 09/25/24 11/07/24 Rx hydrochlorothiazide 12.5 mg tablet 12.5 mg PO DAILY #90 tabs 10/16/24 11/20/24 Rx calcium 600 mg (as 1 tablet PO DAILY 11/07/24 11/20/24 History carbonate)-vitamin D3 5 mcg (200 unit) tablet (Calcium 600 + D(3)) cholecalciferol (vitamin D3) 50 50 mcg PO DAILY 11/07/24 11/20/24 History mcg (2,000 unit) tablet (D3 DOTS) meloxicam 15 mg tablet 15 mg PO DAILY PRN pain 11/07/24 11/07/24 History omeprazole 20 mg capsule,delayed 20 mg PO DAILY 11/07/24 11/20/24 History release Patient hx anesthesia problems: none Family hx anesthesia problems: none Results Review: All pre-operative results and documents have been reviewed as part of the pre-operative evaluation. [facility] Past Medical History Medical History Alcohol abuse Vaginal delivery Full term male 9lbs Full term male 9lbs Full term male 8lbs Hyperlipidemia Acid reflux Eczema Obesity Arthritis Anxiety Essential (primary) hypertension Mixed hyperlipidemia BENNIE (obstructive sleep apnea) Recurrent major depressive disorder, in partial remission Varicose veins of both lower extremities Vitamin D deficiency Surgical History Surgical History H/O dilation and curettage History of endometrial ablation History of arthroscopy of both knees Family History Family History Father Family history of coronary artery disease Hyperlipidemia Hypertension Mother Hypertension Hyperlipidemia Social History Social History Smoking status: Never smoker Second hand tobacco smoke exposure: No Alcohol intake: never Substance use: never Substance use type: does not use Lack of Transportation: No Lack of Food: Never True Current Housing: I Have Housing Concerned About Future Housing: No Difficulty Paying Gas/Electric Bills: No Difficulty Paying for Meds: No Currently Unemployed: No Education: Decline to Answer Difficulty w/ Childcare or Family Care: No Living arrangements: with family Occupation/Education: occupation Gender identity (if verbalized by the patient): Female Spiritual care concerns: No Agree to blood products: Yes Anes - Eval Final PreProcedure Day of Procedure 11/20/24 10:32 Patient weight: obese Heart: regular rate and rhythm Lungs: clear to auscultation Airway: Mallampati scale class II Neurological: alert and oriented Last oral intake: >/= 8 hours ASA classification: III Emergent: no Anesthetic plan: proceed Anesthesia type and monitoring: general GIVS and standard monitoring Results Review: All pre-operative results and documents have been reviewed as part of the pre-operative evaluation. Informed Consent: The patient's anesthetic plan and its attendant risks and benefits were discussed with the patient/family/POA. Questions were solicited and answers provided to the satisfaction of the patient/family/POA.
[2024-11-20] MEDS: LACTATED RINGERS 1,000 ML 150 ML IV CONT (10:36)
--- NOTE | 2024-11-20 10:46 | PM.IMHP ---
H&P: HPI History of Present Illness Date/Time: 11/20/24 10:46 Chief Complaint: History of colon polyps Narrative: The patient has a history of colonic polyps, the last colonoscopy was 5 years ago. She states that it was normal however on previous colonoscopies she has had polyps. Review of Systems Review of Systems: All systems reviewed & are unremarkable except as noted in HPI and below PMFSH Past Medical History Medical History Alcohol abuse Vaginal delivery Full term male 9lbs Full term male 9lbs Full term male 8lbs Hyperlipidemia Acid reflux Eczema Obesity Arthritis Anxiety Essential (primary) hypertension Mixed hyperlipidemia BENNIE (obstructive sleep apnea) Recurrent major depressive disorder, in partial remission Varicose veins of both lower extremities Vitamin D deficiency Surgical History Surgical History H/O dilation and curettage History of endometrial ablation History of arthroscopy of both knees Family History Family History Father Family history of coronary artery disease Hyperlipidemia Hypertension Mother Hypertension Hyperlipidemia Social History Social History Smoking status: Never smoker Second hand tobacco smoke exposure: No Alcohol intake: never Substance use: never Substance use type: does not use Lack of Transportation: No Lack of Food: Never True Current Housing: I Have Housing Concerned About Future Housing: No Difficulty Paying Gas/Electric Bills: No Difficulty Paying for Meds: No Currently Unemployed: No Education: Decline to Answer Difficulty w/ Childcare or Family Care: No Living arrangements: with family Occupation/Education: occupation Gender identity (if verbalized by the patient): Female Spiritual care concerns: No Agree to blood products: Yes Meds Home Medications and Allergies Home Medications ?Medication ?Instructions ?Recorded ?Confirmed ?Type loratadine 10 mg tablet (Claritin) 10 mg PO DAILY 08/25/19 11/20/24 History multivitamin (Daily Multi-Vitamin 1 tablet PO DAILY #90 tabs 10/20/19 11/20/24 Rx tablet) thiamine HCl (vitamin B1) 100 mg 100 mg PO DAILY #90 tabs 08/19/22 11/07/24 Rx tablet Mask fitting #1 ea 10/14/22 07/19/24 Rx losartan 50 mg tablet 50 mg PO DAILY #90 tabs 01/07/24 11/20/24 Rx syringe with needle 1 mL 25 gauge #4 ea 02/21/24 07/19/24 Rx x 5/8 potassium chloride 10 mEq 10 meq PO .4 times a week #90 caps 03/20/24 11/20/24 Rx capsule,extended release atomoxetine 40 mg capsule 40 mg PO DAILY #30 caps 07/19/24 11/20/24 Rx sertraline 100 mg tablet 150 mg (1.5 x 100 mg) PO DAILY 07/19/24 11/20/24 Rx #135 tabs tirzepatide (weight loss) 5 mg/0.5 5 mg (0.5 mL) subcut WEEKLY #2 mL 08/17/24 11/20/24 Rx mL subcutaneous solution (Zepbound) levothyroxine 25 mcg tablet 25 mcg PO DAILY #90 tabs 09/12/24 11/20/24 Rx (Levoxyl) amlodipine 10 mg tablet 10 mg PO DAILY #90 tabs 09/25/24 11/20/24 Rx fenofibrate 160 mg tablet 160 mg PO DAILY #90 tabs 09/25/24 11/20/24 Rx folic acid 1 mg tablet 1 mg PO DAILY #90 tabs 09/25/24 11/07/24 Rx hydrochlorothiazide 12.5 mg tablet 12.5 mg PO DAILY #90 tabs 10/16/24 11/20/24 Rx calcium 600 mg (as 1 tablet PO DAILY 11/07/24 11/20/24 History carbonate)-vitamin D3 5 mcg (200 unit) tablet (Calcium 600 + D(3)) cholecalciferol (vitamin D3) 50 50 mcg PO DAILY 11/07/24 11/20/24 History mcg (2,000 unit) tablet (D3 DOTS) meloxicam 15 mg tablet 15 mg PO DAILY PRN pain 11/07/24 11/07/24 History omeprazole 20 mg capsule,delayed 20 mg PO DAILY 11/07/24 11/20/24 History release Allergies Allergy/AdvReac Type Severity Reaction Status Date / Time tomato Allergy Intermediate ECZEMA Verified 11/20/24 10:22 WORSENS strawberry AdvReac Intermediate ECZEMA Verified 11/20/24 10:22 WORSENS lisinopril AdvReac Unknown Cough Verified 11/20/24 10:22 Vital Signs Vital Signs - 24 hr 11/20/24 10:23 Temperature 97.9 F Pulse Rate 72 Respiratory Rate 18 Blood Pressure 154/77 H Pulse Oximetry 100 Oxygen Delivery Room Air Exam Const: General: cooperative and healthy appearing Resp: Effort & Inspection: normal respiratory effort and able to speak in complete sentences Auscultation: clear to auscultation bilaterally Cardio: Rate: regular rate Rhythm: regular rhythm GI: Inspection: normal to inspection GI Palp: No No hepatosplenomegaly present Auscultation: normal bowel sounds Rectal Exam: deferred Skin: General skin exam: normal color Psych: Appearance: grossly normal Mental Status: mental status grossly normal Assessment and Plan Assessment and plan (1) Personal history of colonic polyps: Code(s): Z86.0100 - Personal history of colon polyps, unspecified Status: Acute Assessment and Plan: The patient is deemed a good candidate for the procedure. Consent signed. Will proceed.
[2024-11-20 11:16] VITALS: BP 144/86; PULSE 68; RESP 18; O2SAT 100
[2024-11-20 11:26] VITALS: BP 148/88; PULSE 63; RESP 18; O2SAT 100
[2024-11-20 11:36] VITALS: BP 136/86; PULSE 63; RESP 18; O2SAT 99
== END 2024-11-20 11:44 | disposition home or self-care (01) ==
PROVIDERS: PCP Family Medicine; Referring Provider Family Medicine; Visit Provider Internal Medicine Gastroenterology
PROC: 0DJD8ZZ Inspection of Lower Intestinal Tract, Via Natural or Artificial Opening Endoscopic (ICD-10-PCS; CPT 45378; principal; 2024-11-20 11:30)
DX: Z12.11 Encounter for screening for malignant neoplasm of colon (principal); K57.30 Diverticulosis of large intestine without perforation or abscess without bleeding; E78.5 Hyperlipidemia, unspecified; K21.9 Gastro-esophageal reflux disease without esophagitis; I10 Essential (primary) hypertension; E78.2 Mixed hyperlipidemia; G47.33 Obstructive sleep apnea (adult) (pediatric); E55.9 Vitamin D deficiency, unspecified; F41.9 Anxiety disorder, unspecified; F33.41 Major depressive disorder, recurrent, in partial remission; M19.90 Unspecified osteoarthritis, unspecified site; E66.9 Obesity, unspecified; Z68.33 Body mass index [BMI] 33.0-33.9, adult; Z79.85 Long-term (current) use of injectable non-insulin antidiabetic drugs; Z98.891 History of uterine scar from previous surgery; Z86.0100 Personal history of colon polyps, unspecified; Z82.49 Family history of ischemic heart disease and other diseases of the circulatory system
CPT/HCPCS: 45378; J2003; J2704; J7120